=== PATIENT | male | born 1945 ===

== ENCOUNTER 2021-07-10 12:03 | Emergency (ER) | payer MEDICARE ==
[2021-07-10 13:14] VITALS: BP 116/62
--- NOTE | 2021-07-10 13:46 | Emergency Department Report ---
ED Eye Problem HPI - General Chief complaint: Eye Problems Stated complaint: BOTH EYE PAIN WELDING Time Seen by Provider: 07/10/21 13:37 Source: patient Mode of arrival: Ambulatory Limitations: No Limitations - History of Present Illness Initial comments: CC: "I was careless." HPI: This is a 75 yo male with hx of CAD s/p CABG who has bilateral eye bu rning. 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 He did not have his shades down. He has bilateral eye burning. Intact vision. No discharge. Mild redness. No treatment attempted at home. chief complaint: eye pain, eye redness -: Gradual, This morning Onset Description: awoke with symptoms Location: both eyes Place: work If Injury: other (lap welder's flash) Eye Symptoms: burning Severity: severe If Pain, Quality: burning Consistency: constant Context: other (lap welder's flash) Associated Symptoms: none Treatments Prior to Arrival: none - Related Data Previous Rx's Medication Instructions Recorded Last Taken Type Erythromycin [Erythromycin Ophth 1 applic OU QID 7 Days #1 tube 07/10/21 Unknown Rx Oint] Ibuprofen [Motrin 400 MG tab] 400 mg PO TID 5 Days #15 tablet 07/10/21 Unknown Rx oxyCODONE /ACETAMINOPHEN [Percocet 1 tab PO Q6HR PRN #15 tablet 07/10/21 Unknown Rx 5/325] Allergies Allergy/AdvReac Type Severity Reaction Status Date / Time niacin Allergy Unknown Verified 07/10/21 13:07 ED Review of Systems ROS: Stated complaint: BOTH EYE PAIN WELDING Other details as noted in HPI Constitutional: denies: fever, malaise ENT: denies: throat pain Respiratory: denies: cough, shortness of breath ED Past Medical Hx - Past Medical History Previous Medical History?: Yes Hx Heart Attack/AMI: Yes (bypass surgery and stents) - Surgical History Past Surgical History?: Yes Additional Surgical History: quadruple bypass, hernia - Medications Home Medications: Home Medications Medication Instructions Recorded Confirmed Last Taken Type Erythromycin [Erythromycin Ophth 1 applic OU QID 7 Days #1 tube 07/10/21 Unknown Rx Oint] Ibuprofen [Motrin 400 MG tab] 400 mg PO TID 5 Days #15 tablet 07/10/21 Unknown Rx oxyCODONE /ACETAMINOPHEN [Percocet 1 tab PO Q6HR PRN #15 tablet 07/10/21 Unknown Rx 5/325] ED Physical Exam - General Limitations: No Limitations General appearance: alert, in no apparent distress, other (steady gait, healthy appearing) - Head Head exam: Present: atraumatic, normocephalic - Expanded Eye Exam Expanded Eyelids: Normal Inspection: Left (normal eyelids bilaterally) Pupils: Regular, Round: Bilateral, Reactive: Bilateral Sclera/Conjunctival: Normal Inspection: Bilateral, Injection: Bilateral (bilateral injection) Anterior chamber: Normal Inspection: Bilateral - ENT ENT exam: Present: mucous membranes moist - Neck Neck exam: Present: normal inspection, full ROM - Respiratory Respiratory exam: Absent: respiratory distress - Neurological Exam Neurological exam: Present: alert, oriented X3, normal gait ED Course Vital Signs 07/10/21 13:13 Temperature 97.7 F Pulse Rate 56 L Respiratory 18 Rate Blood Pressure 116/62 [Right] O2 Sat by Pulse 98 Oximetry ED Medical Decision Making - Medical Decision Making Jonathans flash bilateral eye injury: I personally administered tetracaine eye drops for comfort. 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 I recommended close f/u. Rx: ibuprofen, percocet, erythromcin ophthalmic ointment Critical care attestation.: If time is entered above; I have spent that time in minutes in the direct care of this critically ill patient, excluding procedure time. ED Disposition Clinical Impression: Leilani' keratitis of both eyes Disposition: HOME / SELF CARE / HOMELESS Is pt being admited?: No Does the pt Need Aspirin: No Condition: Stable Instructions: Ultraviolet Keratitis, [id number] Additional Instructions: Please see your eye doctor next week. Prescriptions: Erythromycin [Erythromycin Ophth Oint] 1 applic OU QID 7 Days #1 tube Ibuprofen [Motrin 400 MG tab] 400 mg PO TID 5 Days #15 tablet oxyCODONE /ACETAMINOPHEN [Percocet 5/325] 1 tab PO Q6HR PRN #15 tablet PRN Reason: Pain
== END 2021-07-10 14:00 | disposition home or self-care (01) ==
LOC: ED 12:03
DX: H16.133 Photokeratitis, bilateral (principal); Z98.890 Other specified postprocedural states; Z88.3 Allergy status to other anti-infective agents; W89.8XXA Exposure to other man-made visible and ultraviolet light, initial encounter; Y93.89 Activity, other specified; Y92.89 Other specified places as the place of occurrence of the external cause; Y99.8 Other external cause status
CPT/HCPCS: 99281